=== PATIENT | male | born 1975 | race African-American/Black ===

== ENCOUNTER 2016-12-21 07:49 | Emergency (ER) | payer BC, SELFPAY ==
[2016-12-21] MEDS ORDERED: Ibuprofen 800 MG TAB ONE (08:16)
--- NOTE | 2016-12-21 08:25 | RAD ---
LEFT ELBOW FOUR VIEWS: History: Left elbow pain. FINDINGS/IMPRESSION: No fracture, dislocation, or bony destruction identified. POS: [facility]
== END 2016-12-21 08:35 | disposition home or self-care (01) ==
LOC: ERS 07:49
DX: M77.12 Lateral epicondylitis, left elbow (principal); I10 Essential (primary) hypertension; F17.210 Nicotine dependence, cigarettes, uncomplicated; Z91.14 Patient's other noncompliance with medication regimen

== ENCOUNTER 2021-07-25 03:19 | Emergency (ER) | payer OTHER, SELFPAY | END 2021-07-25 06:40 | disposition home or self-care (01) | LOC: ERS 03:19 | DX: M71.22 Synovial cyst of popliteal space [Baker], left knee (principal); R60.0 Localized edema; M79.662 Pain in left lower leg; I10 Essential (primary) hypertension; F17.210 Nicotine dependence, cigarettes, uncomplicated; Y92.69 Other specified industrial and construction area as the place of occurrence of the external cause ==